=== PATIENT | male | born 1960 | race Caucasian/White ===

== ENCOUNTER 2016-10-09 15:46 | Emergency (ER) | payer BC, OTHER ==
[~2016-10-09] VITALS: Ht 172.7 cm; Wt 108.9 kg
--- NOTE | ~2016-10-09 | EKG ---
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: dirk : 1960 Requested By: Mckayla Swanson Order Number: [id number] MD: Guille Montoya Measurements Intervals [place] Rate: 90 P: 29 PA: 141 QRS: -38 QRSD: 105 T: -10 QT: 406 QTc: 497 Interpretive Statements Sinus rhythm Left axis deviation Abnormal R-wave progression, late transition Borderline T abnormalities, inferior leads Borderline prolonged QT interval No previous ECG available for comparison Electronically Signed On 10-10-2016 14:01:39 CDT by Guille Montoya [email or web address] <ELECTRONICALLY SIGNED> By: Guille Montoya MD, [facility] 10/10/16 1401 161 161 Guille Montoya MD, [facility] /EPI
[2016-10-09 16:13] LABS: HEMATOCRIT 42.3 % (42.0-52.0); HEMOGLOBIN 14.2 gm/dL (14.0-18.0); MCH 29.9 pg (26.0-34.0); MCHC 33.5 g/dL (28.0-37.0); MCV 89.2 fL (80.0-100.0); PLATELET COUNT 296 thou/uL (150-400); RBC 4.75 mil/uL (4.50-6.00); RDW 15.1 % (10.5-14.5); WBC 12.7 thou/uL (4.0-11.0)
[2016-10-09 16:16] LABS: MANUAL DIFF YES
[2016-10-09 16:19] LABS: CALCIUM 9.3 mg/dL (8.5-10.1); CREATININE 1.4 mg/dL (0.7-1.3); POTASSIUM 4.2 mmol/L (3.5-5.1)
[2016-10-09 16:32] LABS: ABSOLUTE NEUTROPHILS 10.4 thou/uL (1.4-8.2); PLATELET ESTIMATE NORMAL; TOTAL CELL COUNT 100
[2016-10-09] MEDS ORDERED: PREDNISONE 20 M20 MG PO (17:21)
[2016-10-09 17:49] VITALS: BP 124/85
== END 2016-10-09 17:51 | disposition home or self-care (01) ==
LOC: ER 15:46
PROVIDERS: Nurse Practitioner Family
DX: T43.3X5A Adverse effect of phenothiazine antipsychotics and neuroleptics, initial encounter (principal); Y92.89 Other specified places as the place of occurrence of the external cause; A41.9 Sepsis, unspecified organism; Z88.0 Allergy status to penicillin; Z88.6 Allergy status to analgesic agent